=== PATIENT | male | born 1965 | race Caucasian/White ===

== ENCOUNTER 2025-03-21 22:27 | Emergency (ER) | payer SELFPAY ==
[~2025-03-21] VITALS: Ht 170.2 cm; Wt 63.5 kg
[2025-03-21 22:33] VITALS: BP 146/88; PULSE 88; RESP 16; TEMP 97.9; O2SAT 98
[2025-03-21 23:12] LABS: Basophils # (auto) 0.1 10 ^3/uL (0-0.2); Basophils % (auto) 0.9 % (0.0-2.0); Eosinophils # (auto) 0.2 10 ^3/uL (0-0.8); Eosinophils % (auto) 1.9 % (0.0-7.0); Hematocrit 41.6 % (41.0-53.0); Hemoglobin 14.5 g/dL (13.5-17.5); Lymphocytes # (auto) 1.6 10 ^3/uL (0.4-5.4); Mean Corpuscular Hemoglobin 31.6 pg (28.0-32.0); Mean Corpuscular Hgb Conc. 34.8 g/dL (32.0-36.0); Mean Corpuscular Volume 90.8 fL (80.0-100.0); Monocytes # (auto) 1.1 10 ^3/uL (0-1.3); Monocytes % (auto) 14.2 % (0.0-12.0); Neutrophils # (auto) 4.9 10 ^3/uL (1.6-8.6); Nucleated Red Blood Cells % 0.1 %; Platelet Count (auto) 313 10^3/uL (140-450); Red Blood Cells 4.58 10^6/uL (4.5-5.90); Red Cell Distribution Width 13.2 % (11.8-14.3); White Blood Cell 7.8 10^3/uL (4.4-10.8)
--- NOTE | 2025-03-21 23:12 | DVH ---
EXAM: CT HEAD WITHOUT CONTRAST INDICATION: aloc TECHNIQUE: CT of the head without intravenous contrast. Radiation Dose : 1. Head: CT Dose: CTDI volume is 55.33 mGy. Dose-length product is 1090.38 mGy*cm The dose indicators for CT are the volume Computed Tomography (CT) Dose Index (CTDIvol) and the Dose Length Product (DLP), and are measured in units of mGy and mGy-cm, respectively. These indicators are not patient dose, but values generated from the CT scanner acquisition factors. The report includes radiation exposure data for exposures received during this examination. COMPARISON: None FINDINGS: There is no evidence of acute intracranial hemorrhage, extra-axial collection, mass effect, midline s hift, herniation or hydrocephalus. Chronic appearing infarcts within the anterior right thalamus and right external capsule. The ventricles, sulci and cisterns are age appropriate. The juarez-white differentiation is intact. Patchy periventricular and subcortical white matter hypoattenuation is nonspecific but may be related to small vessel ischemic disease. Bilateral ethmoid mucosal sinus disease. The remaining visualized paranasal sinuses and mastoid air cells are clear. The surrounding soft tissues and osseous structures are unremarkable. IMPRESSION: 1. No acute intracranial abnormality. 2. Chronic right-sided lacunar infarcts and sequelae of chronic microvascular disease. Radiation optimization: All CT scans at this facility use at least one of these dose optimization angeline hniques: automated exposure control mA and/or kV adjustment per patient size (includes targeted exam s where dose is matched to clinical indication) or iterative reconstruction.
--- NOTE | 2025-03-21 23:16 | ED.PDOC ---
History of Present Illness HPI Comments 59-year-old homeless male is brought in by ambulance for left shoulder wound. Per EMS report, he was found outside of a [facility] on the floor by facility staff. Staff reported on calling EMS, due to patient displaying abnormal behavior. Vitals were noted to have been stable within normal limits. At time of assessment, patient only endorses on left shoulder wound. He refuses to elaborate further on having any additional associated symptoms or the circumstances pertaining towards his wound. Further history is limited, due to patient being noncompliant and absence of family/computer systems information director historians. Chief Complaint: Abrasion Time Seen by MD: 22:35 Reviewed Notes: Nurses Notes, Furniture Shampooer Notes, Medications, Allergies Information Source: Patient, Emergency Med Personnel Mode of Arrival: EMS Severity: Moderate Timing: Hours Duration: Since onset Prehospital treatment: 12 Lead EKG, Public Health Worker Past Medical History PAST MEDICAL HISTORY: Unknown, Unobtainable Surgical History: Unknown, Unobtainable Family History Family History: Unknown, Unobtainable Social History Smoker: Unknown, Unobtainable Alcohol: Unknown, Unobtainable Drugs: Unknown, Unobtainable Lives In: Homeless All Other Systems: Reviewed and Negative (Comprehensive systems review obtained and negative except for what is stated in the HPI.) Physical Exam General Appearance: No Apparent Distress, Normal HEENT: Normal ENT Inspection, Pharynx Normal, TMs Normal Neck: Full Range of Motion, Non-Tender, Normal, Normal Inspection Respiratory: Chest Non-Tender, Lungs Clear, No Accessory Muscle Use, No Respiratory Distress, Normal Breath Sounds Cardiovascular: No Edema, No JVD, No Murmur, No Gallop, Normal Peripheral Pu lses, Regular Rate/Rhythm Breast Exam: Deferred Gastrointestinal: No Organomegaly, Non Tender, No Pulsatile Mass, Normal Bowel Sounds, Soft Genitalia: Deferred Pelvic: Deferred Rectal: Deferred Extremities: No calf tenderness, Normal capillary refill, Normal inspection, Normal range of motion, Non-tender, No pedal edema Musculoskeletal : Apperance: Normal Neurologic: Alert, winch driver II-XII nml as Tested, No Motor Deficits, Normal Affect, Normal Mood, No Sensory Deficits Cerebellar Function: Normal Reflexes: Normal Skin: Dry, Normal Color, Warm, Wounds (1 cm abrasion wound to left shoulder, with surrounding tissue displaying sunburn-esque appearance ) Lymphatic: No Adenopathy Was a procedure done? Was a procedure done?: No Differential Dx Considerations may include: Abrasion, laceration, contusion, bruising, homelessness, encephalopathy, substance abuse, among others X-Ray, Labs, Meds, VS Vital Signs Date Time Temp Pulse Resp B/P (MAP) Pulse Ox O2 Delivery O2 Flow Rate FiO2 03/21/25 22:33 97.9 88 16 146/88 (107) 98 97.9 Lab Test 03/21/25 22:58 Range/Units White Blood Count 7.8 4.4-10.8 10^3/uL Red Blood Count 4.58 4.5-5.90 10^6/uL Hemoglobin 14.5 13.5-17.5 g/dL Hematocrit 41.6 41.0-53.0 % Mean Corpuscular Volume 90.8 80.0-100.0 fL Mean Corpuscular Hemoglobin 31.6 28.0-32.0 pg Mean Corpuscular Hemoglobin Concent 34.8 32.0-36.0 g/dL Red Cell Distribution Width 13.2 11.8-14.3 % Platelet Count 313 140-450 10^3/uL Mean Platelet Volume 7.2 6.9-10.8 fL Neutrophils (%) (Auto) 63.0 37.0-80.0 % Lymphocytes (%) (Auto) 20.0 10.0-50.0 % Monocytes (%) (Auto) 14.2 H 0.0-12.0 % Eosinophils (%) (Auto) 1.9 0.0-7.0 % Basophils (%) (Auto) 0.9 0.0-2.0 % Neutrophils # (Auto) 4.9 1.6-8.6 10 ^3/uL Lymphocytes # (Auto) 1.6 0.4-5.4 10 ^3/uL Monocytes # (Auto) 1.1 0-1.3 10 ^3/uL Eosinophils # (Auto) 0.2 0-0.8 10 ^3/uL Basophils # (Auto) 0.1 0-0.2 10 ^3/uL Nucleated Red Blood Cells 0.1 % Sodium Level 144 136-145 mmol/L Potassium Level 3.5 3.5-5.1 mmol/L Chloride Level 109 H 98-107 mmol/L Carbon Dioxide Level 27 20-31 mmol/L Anion Gap 8 5-15 Blood Urea Nitrogen 18 9-23 mg/dL Creatinine 0.73 0.700-1.30 mg/dL Glomerular Filtration Rate Calc 104 >90 mL/min BUN/Creatinine Ratio 24.7 H 10.0-20.0 Serum Glucose 130 H 74-106 mg/dL Lactic Acid Level 1.3 0.4-2.0 mmol/L Calcium Level 9.6 8.7-10.4 mg/dL Total Bilirubin 0.5 0.2-1.0 mg/dL Aspartate Amino Transferase (AST) 17 <34 U/L Alanine Aminotransferase (ALT) 13 7-40 U/L Alkaline Phosphatase 87 46-116 U/L Ammonia 31 11-32 umol/L Total Protein 6.2 5.7-8.2 g/dL Albumin 4.0 3.2-4.8 g/dL Plasma/Serum Blood Alcohol 3.2 <10 mg/dL [place] [id number] Ph: [phone] DIAGNOSTIC IMAGING Diagnostic Imaging Report : [id number] Signed PATIENT: RACIEL UREÑA ACCT: [id number] UNIT: [id number] : 1965 LOC: ER ROOM / BED: / AGE / SEX: 59 / M ADM STATUS: REG ER SERVICE 36 ORDERING PHYSICIAN: JEANNETTE HINDS PROCEDURE(s): HWOCT - HEAD WITHOUT CONTRAST REASON: aloc ORDER NUMBER(s): [id number], ACCESSION NUMBER(s): [id number] EXAM: CT HEAD WITHOUT CONTRAST INDICATION: aloc TECHNIQUE: CT of the head without intravenous contrast. Radiation Dose : 1. Head: CT Dose: CTDI volume is 55.33 mGy. Dose-length product is 1090.38 mGy*cm The dose indicators for CT are the volume Computed Tomography (CT) Dose Index (CTDIvol) and the Dose Length Product (DLP), and are measured in units of mGy and mGy-cm, respectively. These indicators are not patient dose, but values generated from the CT scanner acquisition factors. The report includes radiation exposure data for exposures received during this examination. COMPARISON: None FINDINGS: There is no evidence of acute intracranial hemorrhage, extra-axial collection, mass effect, midline shift, herniation or hydrocephalus. Chronic appearing infarcts within the anterior right thalamus and right external capsule. The ventricles, sulci and cisterns are age appropriate. The juarez-white differentiation is intact. Patchy periventricular and subcortical white matter hypoattenuation is nonspecific but may be related to small vessel ischemic disease. Bilateral ethmoid mucosal sinus disease. The remaining visualized paranasal sinuses and mastoid air cells are clear. The surrounding soft tissues and osseous structures are unremarkable. IMPRESSION: 1. No acute intracranial abnormality. 2. Chronic right-sided lacunar infarcts and sequelae of chronic microvascular disease. Radiation optimization: All CT scans at this facility use at least one of these dose optimization techniques: automated exposure control mA and/or kV adjustment per patient size (includes targeted exams where dose is matched to clinical indication) or iterative reconstruction. ATED BY: JHON FLOWER MD DICTATED DATE/TIME: 03/21/252308 SIGNED BY: JHON FLOWER MD SIGNED DATE/TIME: 03/21/252308 CC: X-Ray, Labs, Meds, VS Comment Imaging: X-rays and CT scans were reviewed and interpreted by this provider, imaging shows no fractures and no pathological disease. Pending radiology review. Laboratory: Labs reviewed and interpreted by this provider. No significant abnormalities noted. Patient has prior medical visits reviewed. Med reconciliation performed Vital signs reviewed Time of 1ST Reevaluation: 23:05 Reevaluation 1ST: Unchanged Patient Education/Counseling: Need For Follow Up (Follow up with PCP next available appointment. Return to emergency department the next 24 hours if symptoms worsen.) Family Education/Counseling: No Family Present SEPSIS Sepsis Screen Date sepsis recognized/suspect: Mar 21, 2025 Time Sepsis recognized/suspect: 2234 Recent Procedure: No On Antibiotic Therapy: No Respiratory Rate >20: No Heart Rate >90: No Temp<36 C (96.8 F) or >38.3 C: No SBP <90 or MAP <65 mmHG: No New Acute Mental Status Change: No Is the patient on CPAP, BIPAP,: No Physician Orders Head Without Contrast (03/21/25 22:37) Urinalysis (03/21/25 22:37) Drug Screen (03/21/25 22:37) Vital Signs Date Time Temp Pulse Resp B/P (MAP) Pulse Ox O2 Delivery O2 Flow Rate FiO2 03/21/25 22:33 97.9 88 16 146/88 (107) 98 97.9 Laboratory Tests Test 03/21/25 22:58 Lactic Acid Level 1.3 mmol/L (0.4-2.0) White Blood Count 7.8 10^3/uL (4.4-10.8) Departure 1 Departure Time of Disposition: 01:27 Impression: Primary Impression: Shoulder abrasion Qualified Codes: S40.212A - Abrasion of left shoulder, initial encounter Disposition: HOME / SELF CARE / HOMELESS Condition: Fair Discharged With: Self Critical Care Note Critical Care Time?: No Stability Stability form required: No Heart Score Heart Score: Heart Score Response (Comments) Value History N/A 0 EKG N/A 0 Age N/A 0 Risk Factors N/A 0 Troponin N/A 0 Total 0 I personally scribed for JEANNETTE HINDS ([email or web address]) on 03/21/25 at 23:16. Electronically submitted by Edmond Valenzuela ([email or web address]). I personally scribed for JEANNETTE HINDSP ([email or web address]) on 03/21/25 at 23:35. Electronically submitted by Edmond Valenzuela ([email or web address]). JEANNETTE HINDS Mar 21, 2025 23:16
[2025-03-21 23:27] LABS: Alanine Aminotransferase 13 U/L (7-40); Alkaline Phosphatase 87 U/L (46-116); Anion Gap 8 (5-15); Aspartate Aminotransferase 17 U/L (<34); BUN/Creatinine Ratio 24.7 (10.0-20.0); Blood Alcohol 3.2 mg/dL (<10); Blood Urea Nitrogen 18 mg/dL (9-23); Calcium 9.6 mg/dL (8.7-10.4); Carbon Dioxide 27 mmol/L (20-31); Potassium 3.5 mmol/L (3.5-5.1); Sodium 144 mmol/L (136-145); Total Protein 6.2 g/dL (5.7-8.2)
[2025-03-21 23:28] LABS: Bilirubin, Total 0.5 mg/dL (0.2-1.0); Chloride 109 mmol/L (98-107); Glucose 130 mg/dL (74-106)
== END 2025-03-22 02:59 | disposition home or self-care (01) ==
LOC: ER 22:27 → EDBD 22:27 → ER 03-22 02:55
DX: S40.212A Abrasion of left shoulder, initial encounter (principal); R42 Dizziness and giddiness; Z59.00 Homelessness unspecified; Z79.899 Other long term (current) drug therapy; X58.XXXA Exposure to other specified factors, initial encounter; Y93.89 Activity, other specified; Y92.89 Other specified places as the place of occurrence of the external cause; Y99.8 Other external cause status
CPT/HCPCS: 36415; 70450; 80053; 80320; 82140; 83605; 85025

== ENCOUNTER 2025-08-20 18:21 | Emergency (ER) | payer OTHER ==
[~2025-08-20] VITALS: Ht 170.2 cm; Wt 59.0 kg
[2025-08-20 18:26] VITALS: TEMP 98.9
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
[2025-08-20 19:37] LABS: Hematocrit 53.9 % (41.0-53.0); Hemoglobin 18.7 g/dL (13.5-17.5); Mean Corpuscular Hemoglobin 30.6 pg (28.0-32.0); Mean Corpuscular Volume 88.0 fL (80.0-100.0); Nucleated Red Blood Cells % 0.1 %
[2025-08-20 19:48] LABS: Chloride 104 mmol/L (98-107); Sodium 141 mmol/L (136-145)
[2025-08-20 19:49] LABS: Anion Gap 14 (5-15); Calcium 9.5 mg/dL (8.7-10.4); Carbon Dioxide 23 mmol/L (20-31)
[2025-08-20 19:54] LABS: BUN/Creatinine Ratio 18.1 (10.0-20.0); Blood Urea Nitrogen 15 mg/dL (9-23); Glucose 103 mg/dL (74-106)
[2025-08-20 19:55] LABS: Lipase 53 U/L (12-53)
[2025-08-20 20:08] LABS: Potassium 3.2 mmol/L (3.5-5.1)
--- NOTE | 2025-08-20 20:40 | DVH ---
CHEST RADIOGRAPH Indication: Leukocytosis, rule out pneumonia Technique: 1 view Comparison: XR CHEST 1 VIEW on DOS: 01/22/25 FINDINGS: Lines and Tubes: None. Lungs/Pleura: No focal consolidation, pleural effusion or pneumothorax. Cardiomediastinum: Unremarkable. Other: No acute osseous abnormality. IMPRESSION: 1. No acute cardiopulmonary abnormality.
[2025-08-20] MEDS: ONDANSETRON ODT 4 MG TAB PO ONE (22:08)
[2025-08-20] MEDS: POTASSIUM CHL 20 Meq TABLET PO ONE (22:08)
[2025-08-21 08:11] VITALS: BP 124/95; PULSE 105; RESP 17; O2SAT 99
== END 2025-08-21 08:42 | disposition home or self-care (01) ==
LOC: EDUNIT# 18:21 → EDBD 18:21 → ER 18:21
DX: D72.829 Elevated white blood cell count, unspecified (principal); R03.0 Elevated blood-pressure reading, without diagnosis of hypertension; Z79.899 Other long term (current) drug therapy
CPT/HCPCS: 36415; 71045; 80048; 83690; 85025